=== PATIENT | male | born 1945 | race Caucasian/White ===

== ENCOUNTER 2021-09-22 08:37 | Outpatient (REF) | payer OTHER, MEDICARE, SELFPAY ==
--- NOTE | ~2021-09-22 | MR_ITS ---
EXAMINATION: MR LUMBAR SPINE WITHOUT AND WITH CONTRAST CLINICAL INFORMATION: Low back pain and left-sided sciatica. Reported surgery 9 years ago. COMPARISON: X-ray lumbar spine from 08/17/2008. TECHNIQUE: MRI of the lumbar spine was obtained using routine sequences with and without contrast. Intravenous contrast: Gadavist 10 mL FINDINGS: VERTEBRAL BODIES AND PARASPINAL STRUCTURES: There is a mild leftward curvature of the lumbar spine centered at the L3-L4 level where there is moderate disc space narrowing and a mild retrosubluxation with mild posterior endplate edema. There is moderate disc space narrowing lateralized more so to the right side with endplate spurring at the L4-L5 level. Slight retrosubluxation evident at the L5-S1 level. There is a grade 1 anterolisthesis at the L2-L3 level. There is concavity of the superior endplate of L1 which may be due to a mild chronic compression fracture. No marrow edema otherwise seen. No pathologic enhancement is visible. The paraspinal soft tissues appear normal. Small left renal cyst incidentally visualized. CONUS MEDULLARIS AND CAUDA EQUINA: Normal, terminating at the level of L1. No lower cord signal abnormality is seen. No pathologic intradural enhancement identified. SPINAL LEVELS: L1-L2: Slight posterior subluxation and very mild disc bulge with mild facet arthropathy. No central canal stenosis. Bulging disc results in mild left foraminal encroachment. L2-L3: Anterior subluxation and disc bulge with severe facet arthropathy resulting in severe central canal stenosis and thecal sac compression. Left subarticular to foraminal disc protrusion significantly compresses the exiting left L2 nerve root. Bulging disc with milder right foraminal encroachment. L3-L4: Posterior subluxation and diffuse disc bulge with hypertrophic facet arthropathy. Bulging disc mildly impresses upon the left L4 nerve root in the subarticular zone. Mild central canal stenosis. Moderate bilateral foraminal narrowing. Bulging disc impresses upon the extraforaminal L3 nerve roots bilaterally. L4-L5: Moderate loss of disc height and diffuse disc bulge with hypertrophic facet arthropathy contributes to moderate central canal stenosis and encroachment upon the lateral recesses with mild distortion of the L5 nerve roots. Bulging disc and osseous spurring with mild left foraminal narrowing and severe right foraminal encroachment and compression of the exiting right L4 nerve root. L5-S1: Mild posterior subluxation and disc bulge with hypertrophic facet arthropathy. No central canal stenosis. [id number] bilateral foraminal narrowing. MR/MR lumbar spine wo/w con IMPRESSION: Leftward degenerative curvature of the midlumbar spine. No compression fractures. Severe central canal stenosis with exuberant facet arthropathy and a mild anterior subluxation at the L2-L3 level. Left subarticular to left foraminal disc protrusion compresses the left L2 nerve root as well. Moderate multilevel degenerative disc disease and facet arthropathy. Disc bulge at L3-L4 level impresses upon the left L4 nerve root with mild central canal stenosis and moderate foraminal narrowing. Bulging disc also contacts and impresses upon the extraforaminal L3 nerve roots bilaterally. Moderate degenerative disc disease at the L4-L5 level with moderate central canal stenosis and mass effect upon the L5 nerve roots in the narrowed lateral recesses. Severe right foraminal narrowing and compression of the right L4 nerve root.
== END 2021-09-22 08:38 | disposition home or self-care (01) ==
LOC: HO.MRI 08:37
PROVIDERS: Visit Provider Nurse Practitioner Family
DX: M54.50 Low back pain, unspecified (principal)
CPT/HCPCS: 72158; A9585

== ENCOUNTER 2023-02-27 13:14 | Outpatient (AMB) | payer OTHER, SELFPAY ==
--- NOTE | 2023-02-27 13:52 | MHC.OFFVIS ---
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 He is a pleasant 77-year-old male who said about 30 years ago he developed myocardial infarction. He said he was visiting his daughter and son-in-law in [place] and was helping them with landscaping and suddenly passed out. He had no preceding symptoms of chest pain or shortness of breath. He subsequently was brought to the emergency room was noted to have what appears to be ST-elevation myocardial infarction for which he required clot buster medications as per him and subsequently underwent angioplasty. No stent placement. He does not know the localization of his myocardial infarction and or the coronary artery treated at that point time. Since then he has had no symptoms. He has been on medications ever since. He had an echocardiogram at [place] [facility] which shows low normal LVEF of 50% with old basal inferior scar. Also mildly dilated ascending aorta was noted. This study was from 2021. Patient has had no recurrent symptoms since then. Exercise on a regular basis. Do not have any most recent labs. [facility] Medical History Hyperlipidemia Diabetes HTN (hypertension) Myocardial infarction due to atherothrombotic coronary artery disease CAD (coronary artery disease) Review of Systems Const Denies chills, Denies daytime sleepiness, Denies fatigue, Denies fever(s), Denies frequent falls, Denies poor appetite, Denies snoring, Denies stops breathing during sleep, Denies weakness, Denies weight gain and Denies weight loss Eyes Denies loss of vision ENT Denies dizziness and Denies hearing loss Card Denies chest pain, Denies claudication, Denies leg edema, Denies lightheadedness, Denies palpitations, Denies dyspnea, Denies dyspnea on exertion and Denies orthopnea Resp Denies cough, Denies excessive phlegm production, Denies dyspnea, Denies dyspnea on exertion, Denies snoring and Denies wheezing GI Denies abdominal pain, Denies hematochezia, Denies change in bowel habits, Denies nausea and Denies vomiting Denies dysuria and Denies urinary frequency Musc Denies arthralgias, Denies muscle weakness, Denies numbness and Denies other (frequent falls) Skin/Breast Denies nail changes and Denies rash Neuro Denies Abnormal speech present, Denies dizziness, Denies frequent falls, Denies loss of vision, Denies memory loss, Denies numbness and Denies weakness Psych Denies depression and Denies memory loss Endo Denies fatigue and Denies palpitations Diomedes/Lymph Reports easy bruising and Reports other (anemia) Aller/Immun Denies wheezing Physical Exam Vital Signs: Last Vital Signs Pulse 64 02/27/23 13:56 BP 120/78 02/27/23 13:56 BMI result Body Mass Index 33.0 Const General: cooperative, comfortable, no acute distress, well developed, alert, awake, Physically active and well groomed Nutritional Appearance: well nourished and overweight Orientation/consciousness: patient oriented x3 Limitations: no limitations HEENT Head: Yes normocephalic and Yes atraumatic Neck Neck: Yes trachea midline, Yes supple and Yes no JVD Resp Effort & Inspection: normal respiratory effort Auscultation: clear to auscultation bilaterally Cardio Jugular venous distension: no JVD Palpation: normal PMI Rate: regular rate Rhythm: regular rhythm Heart sounds: S1 normal heart sound present, S2 normal heart sound present, no click, no gallops, no murmurs and no rubs GI Auscultation: normal bowel sounds Skin General skin exam: no rashes or lesions noted Neuro General: patient oriented x3 and no focal motor deficits Speech: No Abnormal speech present Extrem General: Yes no clubbing, cyanosis or edema Psych Appearance: grossly normal Office Procedures EKG Details: EKG shows normal sinus rhythm with frequent interpolated PVCs, unifocal with Q-waves in inferior leads with T-wave changes most likely suggestive basal inferior aneurysm [id number], Complete Assessment & Plan Assessment & Plan (1) CAD (coronary artery disease): Code(s): I25.10 - Atherosclerotic heart disease of [place] coronary artery without angina pectoris Plan: Patient with CAD with no obvious symptoms of time of myocardial infarction except for syncopal episode. No chest pain or shortness of breath. He has had no ischemic workup in the recent past. He has multiple risk factors for progressive CAD. Would obtain exercise myocardial perfusion imaging to evaluate for silent myocardial ischemia. Continue aggressive medical therapy. Lifelong aspirin therapy is advised. He is currently on high-intensity statin therapy and target goal LDL should be closer to 60 mg/dL. Blood pressure is currently well optimized on current therapy. Diabetes under your care with goal hemoglobin A1c less than 7%. Will obtain lab work from your office. Otherwise is encouraged to continue to participate in physical activity as tolerated. (2) Ascending aortic aneurysm: Code(s): I71.21 - Aneurysm of the ascending aorta, without rupture Plan: Patient with mild ascending aortic aneurysm which does not require intervention although requires follow-up annually by echocardiogram. Will repeat echocardiogram near future. Continue aggressive atherosclerotic risk factor modification above. Avoidance of sudden strenuous isometric exercise was discussed. (3) PVCs (premature ventricular contractions): Code(s): I49.3 - Ventricular premature depolarization Plan: Frequent PVCs without any obvious symptoms related to it. Most likely given unifocal nature most likely single focus. Will obtain Holter monitor to assess for frequency of PVCs. This will be scheduled in near future. Continue metoprolol therapy. Ischemic workup as above. Avoidance of stimulants was discussed. Will follow up in the clinic in 1 year's time, sooner p.r.n.. Thank you for allowing me to partake in his care Orders: Orders CA stress test Today I25.10 - Atherosclerotic heart disease of [place] coronary artery without angina pectoris NM cardiolite stress test 2 Weeks I25.10 - Atherosclerotic heart disease of [place] coronary artery without angina pectoris, R07.9 - Chest pain, unspecified Coding Level of Care Code New Pt Level 4 (00206) Diagnoses CAD (coronary artery disease) I25.10 Ascending aortic aneurysm I71.21 PVCs (premature ventricular contractions) I49.3 CPT Codes EKG - CPT: [id number], Complete ([id number])
[2023-02-27 13:56] VITALS: BP 120/78; PULSE 64; BMI 33.0
== END 2023-02-27 14:36 | disposition home or self-care (01) ==
PROVIDERS: PCP Internal Medicine; Visit Provider Internal Medicine Cardiovascular Disease
DX: I25.10 Atherosclerotic heart disease of native coronary artery without angina pectoris (principal); I71.21 Aneurysm of the ascending aorta, without rupture; I49.3 Ventricular premature depolarization
CPT/HCPCS: 93010; 99204

== ENCOUNTER → 2023-02-27 13:14 | Outpatient (BNVA) | payer OTHER, MEDICARE, SELFPAY | PROVIDERS: PCP Internal Medicine; Visit Provider Internal Medicine Cardiovascular Disease | DX: I25.10 Atherosclerotic heart disease of native coronary artery without angina pectoris (principal); I71.21 Aneurysm of the ascending aorta, without rupture; I49.3 Ventricular premature depolarization | CPT/HCPCS: 93005; 99202 ==

== ENCOUNTER → 2023-04-16 08:28 | Outpatient (REF) | payer OTHER, SELFPAY ==
--- NOTE | ~2023-04-16 | NM_ITS ---
Exercise Myocardial perfusion study Indication: Chest pain to evaluate for myocardial ischemia Technique: The patient was brought in for an exercise perfusion study on 04/16/2023. Patient performed exercise as per Pito protocol and was injected 30 mCi of sestamibi was given intravenously one target HR was achieved. Images were obtained using the SPECT gamma camera interlaced with the gating device. Images were obtained in supine position. Resting perfusion study was performed on 04/17/2023. Patient was administered 30 mCi of sestamibi intravenously at rest. Images were then obtained in supine position. Images obtained with and without CT attenuation. Total DLP 105 mGy-cm. Images were processed with the software and compared side to side in short axis, horizontal long axis and vertical long axis views. Findings: The stress perfusion study showed non attenuated images show mildly reduced uptake in the basal and mid inferior as well as inferoapical wall of the LV myocardium as well as mildly reduced uptake in the basal inferolateral lateral wall of the LV myocardium. Attenuation corrected images show mildly reduced uptake in the basal and mid inferior as well as the basal lateral wall of the LV myocardium.. The gated study is suboptimal due to frequent PVCs and not reliable. LV cavity is mildly dilated in size. Resting study shows improved uptake in the inferior wall as well as the basal lateral wall in non attenuated as well as attenuated corrected images. Gating at rest reveals normal systolic wall motion with ejection fraction at 54%. The findings are consistent with mild intensity reversible defect in the basal lateral and inferior wall of the myocardium suggestive of ischemia in RCA/circumflex territory. NM/NM cardiolite stress test Impression: 1. Mild intensity moderate size in the basal lateral and inferior wall of the LV myocardium 2. Gated LVEF is 54% at rest 3. Transient ischemic dilatation not present Stress EKG is negative for ischemia
--- NOTE | 2023-04-16 08:39 | CA_ITS ---
Transthoracic Echocardiogram Patient (Last, First, Middle): John Herzog G Gender: Male Date of : 1945 Age: 78 Procedure Date: 04/16/2023 Procedure Type: Transthoracic Echocardiogram Location: OP Height: 170.18 cm Weight: 93.44 kg BSA: 2.05 m2 Heart Rate: bpm BP: 140 / 80 mmHg Rubber Mixer: [id number] Referring MD: John Phillips MD Symptoms: I71.21 - Aneurysm of the ascending aorta, without rupture Study Quality: Adequate ECG Rhythm: Sinus with PVCs Conclusions: - The left ventricular systolic function is normal. The calculated ejection fraction is 58% by biplane method. - The basal inferior segment is hypokinetic. - There is mild calcification of the aortic valve. - There is mild dilatation of the ascending aorta measuring 4.00 cm. Findings Left Ventricle Normal left ventricular cavity size. The left ventricular systolic function is normal. The calculated ejection fraction is 58% by biplane method. There is evidence of regional wall motion abnormalities. Diastolic function is normal for age. There is mild septal and mild basal asymmetric hypertrophy. Wall Motion Rest Echo Findings The basal inferior segment is hypokinetic. Right Ventricle Mildly increased right ventricular cavity size. There is normal right ventricular systolic function. Atria The left atrium is mildly dilated. The right atrium is normal in size. Aortic Valve There is mild calcification of the aortic valve. There is no aortic valve stenosis. There is no aortic valve regurgitation. Mitral Valve The mitral valve appears normal. There is mild mitral annular calcification. There is trace mitral valve regurgitation. There is no mitral valve stenosis. Pulmonic Valve The pulmonic valve is likely normal. Tricuspid Valve There is trace tricuspid valve regurgitation. There is no evidence of pulmonary hypertension. Great Vessels The aortic arch is normal in size. There is mild dilatation of the ascending aorta measuring 4.00 cm. Small plaque is seen in the sino tubular ridge. Venous The inferior vena cava is normal in size and collapses greater than 50% with inspiration. Pericardium/Pleural There is no evidence of pericardial effusion. Prior Study Comparison Changes noted compared to prior study dated: 07/14/2013. see comment on inferior wall. Measurements 2D Linear Measurements IVSd: 0.87 0.6-0.9/0.6-1.0 cm LVIDd: 5.60 3.9-5.3/4.2-5.9 cm LVIDd Index: 2.73 2.4-3.2/2.2-3.1 cm/m2 LVIDs: 3.41 2.0-3.6 cm LVPWd: 0.99 0.7-1.1 cm LA Diam: 4.50 2.7-3.8/3.0-4.0 cm LAIDs Index: 2.20 1.5-2.3 cm/m2 LV Mass: 248.61 67-162/88-224 g LV Mass Index: 121.27 43-95/49-115 g/m2 LVOT Diam: 2.20 3.0+(-)1.3 cm 2D Systolic Function EF 4C: 56.90 >55% EF 2C: 57.70 >55% EF BiP: 57.60 >55% Mitral Valve MV Pk E: 0.63 MV PK A: 0.69 MV Decel Time: 278.00 E/A: 0.90 E'Lateral: 6.53 E'Medial: 4.46 E/E' Med: 14.10 E/E' Lat: 9.60 PHT: 81.00 MVA PHT: 2.72 Decel Daggett: 2.26 Aortic Valve AoV Pk Micheal: 1.49 AoV Mn Micheal: 0.99 AoV VTI: 0.31 AoV Pk Grad: 9.00 Aov Mn Grad: 5.00 SCOTTIE Cont.VTI: 2.21 LVOT LVOT Pk Micheal: 0.91 LVOT Mn Micheal: 0.57 LVOT VTI: 0.18 LVOT Pk Grad: 3.00 LVOT Mn Grad: 2.00 LVOT Diam: 2.20 LVOT Area: 3.80 Diastolic Function MV Pk E: 0.63 MV Pk A: 0.69 E/A: 0.90 E'Medial: 4.46 E/E' Med: 14.10 E' Laterial: 6.53 E/E' Lat: 9.60 Right Ventricle TAPSE (mm): 25.30 TVS' Micheal: 14.60 Tricuspid Valve TR Pk Micheal: 2.55 TR Pk Grad: 26.00 RA Press: 3.00 RVSP: 29.00 Great Vessels Aorta Sinus of Valsalva: 3.80 2.0-3.[address] Ridge: 2.53 1.7-3.4 cm Ao Asc: 4.00 2.1-3.4 cm Ao Arch: 3.10 Updated in Other Vendor System with Status of Final Danny Phelps MD electronically signed on 04/16/2023 10:30:10 AM with status of Final
--- NOTE | 2023-04-16 08:39 | HM_ITS ---
* Total monitoring time 3 days. * Underlying rhythm is sinus with an average rate of 69/Min. Range 48 to 130/min. * Frequent ventricular ectopy with a burden of 15%. Multiple morphologies. Couplets, triplets, bigeminy and trigeminy. Very brief runs. Longest 9 beats. * Rare supraventricular ectopy. * No significant pauses or AV blocks. * No patient markers or diary events. MTDD
--- NOTE | 2023-04-16 08:39 | CA_ITS ---
Acquisition Time: 2023-04-16 09:54:29 Total Exercise Time: 00:07:59 Test Indications: CAD Medications: ASA ATORVASTATIN LISINOPRIL METFORMIN METOPROLOL OMEPRAZOLE SILDENAFIL Protocol: BALTAZAR Max HR: 136 BPM 95% of Pred: 142 BPM Max BP: 178/080 mmHG Max Work Load: 10.0 METS Exercise stress test exercise 7 min 59 sec of Baltazar protocol achieving 95% MPHR, without anginal symptoms, with isolated PVCs throughout and ventricular cuplets, with normotensive response to exercise, without EKG changes. Nuclear images pending. Test reviewed with Dr. Phelps Referred By: John Phillips Overread By: Jeannette Nagy
== END ==
LOC: HO.CARD 08:28
PROVIDERS: PCP Nurse Practitioner Family; Visit Provider Internal Medicine Cardiovascular Disease
DX: R07.9 Chest pain, unspecified (principal); I71.21 Aneurysm of the ascending aorta, without rupture; I25.10 Atherosclerotic heart disease of native coronary artery without angina pectoris; I49.3 Ventricular premature depolarization
CPT/HCPCS: 78452; 93017; 93242; 93306; A9500

== ENCOUNTER → 2023-04-16 08:39 | Outpatient (BNV) | payer OTHER, SELFPAY | PROVIDERS: PCP Nurse Practitioner Family; Visit Provider Internal Medicine | DX: I49.3 Ventricular premature depolarization (principal) | CPT/HCPCS: 78452; 93016; 93018; 93244; 93306 ==

== ENCOUNTER 2023-08-27 12:59 | Outpatient (REF) | payer OTHER, SELFPAY ==
--- NOTE | ~2023-08-27 | MR_ITS ---
EXAMINATION: MR LUMBAR SPINE WITHOUT CONTRAST CLINICAL INFORMATION: Left-sided sciatica COMPARISON: MRI lumbar spine 09/22/2021 TECHNIQUE: MRI of the lumbar spine was obtained using routine sequences without contrast. FINDINGS: Mild lumbar levocurvature. Straightening of the normal lumbar lordosis. Slight anterolisthesis at L2-L3 and slight retrolisthesis at L3-L4 and L5-S1. Stable height loss associated with a chronic L1 upper endplate compression fracture with mild anterior wedging. Multilevel disc desiccation with similar severe right-sided disc height loss at L3-L4 and L4-L5 and severe left-sided disc height loss at L5-S1 with vacuum phenomenon at these levels and otherwise milder disc height loss. Mild type I/II Modic endplate changes on the right at L4-L5. Couple endplate Schmorl's nodes are seen. Multilevel anterior osteophytic spurring is seen. 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 Level by level detail as follows: L1-L2: Retrolisthesis with redemonstrated left foraminal/extraforaminal disc protrusion. Mild bilateral facet arthrosis. No spinal canal stenosis. Stable mild left without right neural foraminal stenosis. L2-L3: Uncovered posterior disc material. Slightly decreased size of left foraminal disc protrusion. Advanced bilateral facet arthrosis and ligamentum flavum thickening. Similar moderate to severe spinal canal and subarticular zone narrowing with mass effect along the traversing L3 nerve roots. Persistent severe left neural foraminal stenosis with impingement of the exiting/extraforaminal left L2 nerve root. Stable mild right neural foraminal narrowing with slight impingement upon the extraforaminal right L2 nerve root. L3-L4: Annular disc bulge/disc osteophyte with moderate bilateral facet arthrosis and ligamentum flavum thickening. Stable mild spinal canal and subarticular zone narrowing abutting the traversing L4 nerve roots. Unchanged moderate to severe left and moderate right neural foraminal stenosis with impingement of the exiting/extraforaminal left greater than right L3 nerve roots. L4-L5: Annular disc bulge/disc osteophyte complex with severe bilateral facet arthrosis and ligamentum flavum thickening. Stable moderate spinal canal and bilateral subarticular zone narrowing with impingement of the traversing L5 nerve roots. Stable severe right neural foraminal stenosis with compression of the exiting/extraforaminal right L4 nerve root and moderate left neural foraminal narrowing with milder mass effect along the exiting/extraforaminal left L4 nerve root. L5-S1: Annular disc bulge with disc osteophyte complex and moderate facet arthrosis. No spinal canal stenosis. Stable mild to moderate bilateral neural foraminal stenosis. The conus medullaris terminates at the level of T12-L1. The distal spinal cord is normal in appearance. No epidural fluid collection, hematoma, or mass. There is mild fatty atrophy of the paraspinal musculature. Small simple appearing left renal cyst not requiring further imaging follow-up. Bulky bridging osteophytosis again spanning the left left sacroiliac joint. The abdominal aorta is of normal contour and caliber. MR/MR lumbar spine wo con IMPRESSION: Decreased size of left foraminal/extraforaminal disc protrusion at L2-L3. 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 Spinal canal narrowing is most pronounced and moderate to severe at L2-L3. Multilevel high-grade neural foraminal stenosis with mass effect along the exiting nerve roots is likewise stable.
== END 2023-08-27 13:00 | disposition home or self-care (01) ==
LOC: HO.MRI 12:59
PROVIDERS: PCP Nurse Practitioner Family; Visit Provider Physician Assistant Medical
DX: M54.42 Lumbago with sciatica, left side (principal)
CPT/HCPCS: 72148

== ENCOUNTER 2024-02-26 12:26 | Outpatient (REF) | payer OTHER, SELFPAY ==
[2024-02-26 14:07] LABS: Hematocrit 43.5 % (42.0-52.0); Mean Corpuscular HGB Conc 34.5 g/dl (31.0-36.0); Mean Corpuscular Hemoglobin 29.6 pg (27.0-33.0); Platelet Count 208 X10*3/uL (160-400); Red Blood Count 5.06 X10*6/uL (4.60-5.80); Red Cell Distribution Width 12.4 % (11.0-16.0); White Blood Count 7.6 X10*3/uL (4.8-10.8)
[2024-02-26 14:27] LABS: Anion Gap 12 (12-20); Blood Urea Nitrogen 15 mg/dL (9-16); Calcium 8.9 mg/dL (8.4-10.2); Carbon Dioxide 25 mmol/L (22-29); Chloride 104 mmol/L (96-108); Estimated Glomerular Filt Rate > 60; Glucose Random 150 mg/dL (60-115); Potassium 4.1 mmol/L (3.3-5.1); Sodium 137 mmol/L (135-145)
[2024-02-26 14:44] LABS: TSH reflex Free T4 2.52 uIU/mL (0.32-4.0)
== END 2024-02-26 12:27 | disposition home or self-care (01) ==
LOC: HO.LAB 12:26
PROVIDERS: PCP Nurse Practitioner Family; Visit Provider Internal Medicine Cardiovascular Disease
DX: I48.19 Other persistent atrial fibrillation (principal); I25.10 Atherosclerotic heart disease of native coronary artery without angina pectoris; I71.21 Aneurysm of the ascending aorta, without rupture
CPT/HCPCS: 36415; 80048; 84443; 85027; 93005; 99212

== ENCOUNTER 2024-02-26 12:26 | Outpatient (AMB) | payer OTHER, SELFPAY ==
--- NOTE | 2024-02-26 12:40 | MHC.OFFVIS ---
Vital Signs 02/26/24 12:41 Height 5 ft 7.5 in Weight 211 lb 10.3 oz BMI 32.7 BP 140/80 H Blood Pressure Location Lt brachial Position Sitting Pulse 95 Pulse Source Monitor Intake Visit Reasons: 1 year follow up Allergies starch [STARCH] Allergy (Intermediate, Unverified 12/18/19 17:17) RASH Medication List - Last Reconciled 02/26/24 by John Phillips MD aspirin (Martina Low Dose Aspirin) 81 mg PO DAILY atorvastatin 80 mg PO DAILY lisinopril 5 mg PO DAILY metformin 500 mg PO DAILY metoprolol tartrate 25 mg PO BID omeprazole 20 mg PO DAILY PRN sildenafil 100 mg PO DIRECTED HPI Comments Details: John comes for routine 1 year follow-up. He was noted to be in atrial fibrillation by EKG. He said he finds no obvious symptoms. He says blood pressures been elevated and he may have some symptoms of fatigue but he thought there was nothing significant. Denies any worsening exertional shortness of breath. Denies orthopnea, PND, leg edema. No prolonged fast heart rate, palpitations, lightheadedness, syncope. He has been taking all his medications. No recent change in systemic health. FORMERLY [facility] Medical History Hyperlipidemia Diabetes HTN (hypertension) Myocardial infarction due to atherothrombotic coronary artery disease CAD (coronary artery disease) Review of Systems Const Denies weakness ENT Denies dizziness Card Denies chest pain, Denies chest pain with activity, Denies syncope, Denies rapid heart rate, Denies pedal edema, Denies edema, Denies leg edema, Denies lightheadedness, Denies palpitations, Denies dyspnea, Denies dyspnea on exertion and Denies orthopnea Resp Denies cough, Denies dyspnea and Denies dyspnea on exertion GI Denies hematochezia and Denies change in stool character Musc Denies abnormal gait, Denies muscle cramps, Denies muscle weakness, Denies numbness, Denies radiating pain into limb and Denies tingling Neuro Denies Abnormal speech present, Denies abnormal gait, Denies dizziness, Denies syncope, Denies numbness, Denies tingling and Denies weakness Endo Denies palpitations Physical Exam Vital Signs: Last Vital Signs Pulse 95 02/26/24 12:41 BP 140/80 H 02/26/24 12:41 BMI result Body Mass Index 32.7 Const General: cooperative, comfortable, no acute distress, well developed, alert, awake, Physically active and well groomed Nutritional Appearance: well nourished and overweight Orientation/consciousness: patient oriented x3 Limitations: no limitations Neck Neck: Yes trachea midline, Yes supple and Yes no JVD Resp Effort & Inspection: normal respiratory effort Auscultation: clear to auscultation bilaterally Cardio Jugular venous distension: no JVD Palpation: normal PMI Rhythm: abnormal rhythm irregularly irregular Heart sounds: S1 normal heart sound present, S2 normal heart sound present, no click, no gallops, no murmurs and no rubs GI Auscultation: normal bowel sounds Skin General skin exam: no rashes or lesions noted Neuro General: patient oriented x3 and no focal motor deficits Speech: No Abnormal speech present Extrem General: Yes no clubbing, cyanosis or edema Psych Appearance: grossly normal Office Procedures EKG Details: EKG shows atrial fibrillation with nonspecific ST T wave changes in lateral leads with T-wave inversion inferior leads without Q-waves [id number], Complete Assessment & Plan Assessment & Plan (1) Persistent atrial fibrillation: Code(s): I48.19 - Other persistent atrial fibrillation Category: Medical Plan: Persistent new onset atrial fibrillation without any obvious symptoms or signs of cardiac decompensation at current point time. He may have symptoms of fatigue but he is not clear. At this point time we discussed the pathophysiology of atrial fibrillation. Most common risk factors hypertension and aging. We discussed about management of atrial fibrillation. Aspirin is not adequate prophylaxis for stroke prevention. CHADSVASc score of 5. He should be on oral anticoagulation therapy. Discussed various options. I would start him on apixaban 5 mg b.i.d.. Will obtain baseline blood work including TSH. Will obtain an echocardiogram. Once he is adequately anticoagulated for 4 weeks will bring him back for synchronized cardioversion. Discussed risks, benefits, alternatives. He understands and agrees. Rationale for rhythm control was discussed. Will further guide therapy based on his response to cardioversion in symptom improvement. Continue risk factor modification with aggressive control blood pressure. Increasing metoprolol to 50 mg b.i.d. for better rate control and blood pressure control. (2) CAD (coronary artery disease): Code(s): I25.10 - Atherosclerotic heart disease of havasupai coronary artery without angina pectoris Category: Medical Plan: Coronary artery disease with mild ischemia without any obvious symptoms. Has prior history of myocardial infarction. Has inferior wall motion abnormality. Continues to have no symptoms. Could represent silent myocardial ischemia although will manage him with medical therapy given lack of symptoms and low risk myocardial perfusion imaging. Continue aggressive risk factor modification. Increase metoprolol as above. Continue high-intensity statin therapy with target goal LDL closer to 60 mg/dL being pursue through office. (3) Ascending aortic aneurysm: Code(s): I71.21 - Aneurysm of the ascending aorta, without rupture Category: Medical Plan: Mild ascending aortic aneurysm which has remained stable. No interventions required. Continue aggressive blood pressure control and risk factor modification. Follow-up echocardiogram as above. Will follow up in the clinic in 2 months time after cardioversion. Thank you for allowing me to partake in his Orders: Orders Complete Blood Count no Diff Today I48.19 - Other persistent atrial fibrillation Basic Metabolic Panel Today I48.19 - Other persistent atrial fibrillation TSH reflex Free T4 Today I48.19 - Other persistent atrial fibrillation CA echo transthoracic complete Today I48.19 - Other persistent atrial fibrillation Cardioversion 4 Weeks I48.19 - Other persistent atrial fibrillation ECG 3 day holter monitor 6 Weeks I48.19 - Other persistent atrial fibrillation Medications: New apixaban (Eliquis) 5 mg PO BID 60 tabs 5RF metoprolol tartrate 50 mg PO BID 60 tabs 5RF Coding Level of Care Code Est Pt Level 4 (67450) Complex EM visit Add On G2211 Diagnoses Persistent atrial fibrillation I48.19 CAD (coronary artery disease) I25.10 Ascending aortic aneurysm I71.21 CPT Codes EKG - CPT: 11358-[id number], Complete ([id number])
[2024-02-26 12:41] VITALS: BP 140/80; PULSE 95; BMI 32.7
== END 2024-02-26 13:04 | disposition home or self-care (01) ==
PROVIDERS: PCP Internal Medicine; Visit Provider Internal Medicine Cardiovascular Disease
DX: I48.19 Other persistent atrial fibrillation (principal); I25.10 Atherosclerotic heart disease of native coronary artery without angina pectoris; I71.21 Aneurysm of the ascending aorta, without rupture
CPT/HCPCS: 93010; 99214; G2211

== ENCOUNTER → 2024-03-19 07:43 | Outpatient (REF) | payer OTHER, SELFPAY | LOC: HO.CARD 07:43 | PROVIDERS: Visit Provider Internal Medicine Cardiovascular Disease | DX: I48.19 Other persistent atrial fibrillation (principal) | CPT/HCPCS: 93242; Q9957 ==

== ENCOUNTER → 2024-03-19 07:50 | Outpatient (BNV) | payer OTHER, SELFPAY | PROVIDERS: Visit Provider Internal Medicine | DX: I48.19 Other persistent atrial fibrillation (principal); I51.7 Cardiomegaly; I35.1 Nonrheumatic aortic (valve) insufficiency | CPT/HCPCS: 93244; 93306 ==

== ENCOUNTER → 2024-03-21 | Outpatient (REF) | payer OTHER, SELFPAY ==
--- NOTE | 2024-03-19 07:50 | CA_ITS ---
Transthoracic Echocardiogram Patient (Last, First, Middle): John Herzog G Gender: Male Date of : 1945 Age: 78 Procedure Date: 03/19/2024 Procedure Type: Transthoracic Echocardiogram Location: OP Height: 170.18 cm Weight: 95.71 kg BSA: 2.07 m2 Heart Rate: bpm BP: 140 / 80 mmHg Mixing Plant Operator: DANN Referring MD: John Phillips MD Symptoms: I48.19 - Other persistent atrial fibrillation Study Quality: Fair/Contrast ECG Rhythm: Atrial Fibrillation Conclusions: - The left ventricular systolic function is moderately decreased. The visually estimated ejection fraction is between 35-40%. - No obvious valvular pathology seen on this study. - The left atrium is moderately dilated. - There is mild dilatation of the ascending aorta measuring 4.00 cm. Findings Procedure Information Contrast agent, definity, is being given per protocol without apparent complications. Left Ventricle Normal left ventricular cavity size. There is mildly increased left ventricular wall thickness. The left ventricular systolic function is moderately decreased. The visually estimated ejection fraction is between 35 40%. There is moderate global hypokinesis. Diastolic function is indeterminate on the basis of available data. Right Ventricle Mildly increased right ventricular cavity size. There is mildly decreased right ventricular systolic function. Atria The left atrium is moderately dilated. The right atrium is mildly dilated. Aortic Valve There is a normal trileaflet aortic valve. There is mild calcification of the aortic valve. There is no aortic valve stenosis. There is trace (trivial) aortic valve regurgitation. Mitral Valve The mitral valve appears normal. There is trace mitral valve regurgitation. There is no mitral valve stenosis. Pulmonic Valve The pulmonic valve is likely normal. Tricuspid Valve There is trace tricuspid valve regurgitation. There is no evidence of pulmonary hypertension. Great Vessels The aortic arch is normal in size. There is mild dilatation of the ascending aorta measuring 4.00 cm. Venous The inferior vena cava is normal in size and collapses greater than 50% with inspiration. Pericardium/Pleural There is a trivial pericardial effusion. Prior Study Comparison Changes noted compared to prior study dated: 04/16/2023. Decrease in LVEF. Recommendations, Care & Conclusions No obvious valvular pathology seen on this study. Measurements 2D Linear Measurements IVSd: 1.23 0.6-0.9/0.6-1.0 cm LVIDd: 5.15 3.9-5.3/4.2-5.9 cm LVIDd Index: 2.49 2.4-3.2/2.2-3.1 cm/m2 LVIDs: 4.15 2.0-3.6 cm LVPWd: 1.17 0.7-1.1 cm Ao Root: 3.50 2.1-3.5 cm LA Diam: 4.90 2.7-3.8/3.0-4.0 cm LAIDs Index: 2.37 1.5-2.3 cm/m2 LV Mass: 305.53 67-162/88-224 g LV Mass Index: 147.60 43-95/49-115 g/m2 LVOT Diam: 2.10 3.0+(-)1.3 cm 2D Systolic Function EF 4C: 35.30 >55% EF 2C: 37.90 >55% EF BiP: 38.10 >55% Aortic Valve AoV Pk Micheal: 1.30 AoV Mn Micheal: 0.98 AoV VTI: 0.23 AoV Pk Grad: 7.00 Aov Mn Grad: 4.00 SCOTTIE Cont.VTI: 1.88 LVOT LVOT Pk Micheal: 0.71 LVOT Mn Micheal: 0.45 LVOT VTI: 0.13 LVOT Pk Grad: 2.00 LVOT Mn Grad: 1.00 LVOT Diam: 2.10 LVOT Area: 3.46 Right Ventricle TAPSE (mm): 22.40 TVS' Micheal: 8.16 Tricuspid Valve TR Pk Micheal: 2.23 TR Pk Grad: 20.00 RA Press: 3.00 RVSP: 23.00 Great Vessels Aorta Ao Root-2D: 3.50 2.0-3.7 cm Ao Asc: 4.00 2.1-3.4 cm Ao Arch: 2.90 Updated in Other Vendor System with Status of Final Danny Phelps MD electronically signed on 03/21/2024 3:20:07 PM with status of Final
== END ==
LOC: HO.CARD
PROVIDERS: Visit Provider Internal Medicine Cardiovascular Disease
DX: I48.19 Other persistent atrial fibrillation (principal)
CPT/HCPCS: 93242; 93306

== ENCOUNTER 2024-03-28 10:49 | Day surgery (SDC) | payer OTHER, SELFPAY ==
[2024-03-25 13:46] VITALS: BMI 32.6
[2024-03-28 11:35] VITALS: BP 153/83; PULSE 85; RESP 16; TEMP 36.5; O2SAT 97; BMI 30.8
[2024-03-28 11:56] LABS: Glucose, Whole Blood 172 mg/dL (60-115)
--- NOTE | 2024-03-28 12:25 | HO.ANESPROP2 ---
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 coronary artery disease CAD (coronary artery disease) Surgical History Surgical History (Updated 03/28/24 @ 11:44 by Kasia Edmond RN) H/O hemorrhoidectomy H/O endoscopy H/O colonoscopy History of angioplasty H/O Spinal surgery Social History Social History Are you a primary rn homecare to a significant other at home: No Do you presently have visiting nurse or other home services: No Patient Tobacco Use Status: Former Tobacco user Tobacco use type: Cigarette Smoked in Last 30 Days: No Use of substances other than those prescribed or required for medical reasons: No Have you been hit, kicked, punched, or otherwise hurt by someone within the past year? If so, by whom?: No Are you DNR?: No Advance Directives: No Advance Directives Information Provided: Yes ( Catrina per patient) Advance Directives on File: No Recently lost weight without trying: No How much weight loss: Not applicable Eating poorly because of decreased appetite: No Nutrition screen score: 0 Nutrition Risks: No Nutritional Risk Poor oral hygiene: No Meds Allergies Allergy/AdvReac Type Severity Reaction Status Date / Time starch [STARCH] Allergy Intermediate RASH Verified 03/28/24 11:26 Home Medications ?Medication ?Instructions ?Recorded ?Confirmed ?Last Taken ?Type atorvastatin 80 mg tablet 80 mg PO DAILY 02/27/23 03/28/24 Unknown History lisinopril 5 mg tablet 5 mg PO DAILY 02/27/23 03/28/24 03/28/24 History metformin 500 mg tablet 500 mg PO DAILY 02/27/23 03/28/24 03/26/24 History omeprazole 20 mg capsule,delayed 20 mg PO DAILY PRN Acid Reflux 02/27/23 03/28/24 Unknown History release sildenafil 100 mg tablet 100 mg PO DIRECTED 02/27/23 03/28/24 Unknown History Exam Height,Weight and Vital Signs: Height 5 ft 7.5 in Weight 95.708 kg Pertinent Lab Results Pertinent Lab Results: Laboratory Tests 02/26/24 13:38 WBC 7.6 Hgb 15.0 Hct 43.5 Plt Count 208 Sodium 137 Potassium 4.1 Chloride 104 Carbon Dioxide 25 BUN 15 Creatinine 1.08 Narrative Narrative: ECHO 03/2024 Conclusions: - The left ventricular systolic function is moderately decreased. The visually estimated ejection fraction is between 35-40%. - No obvious valvular pathology seen on this study. - The left atrium is moderately dilated. - There is mild dilatation of the ascending aorta measuring 4.00 cm. Assessment and Plan Assessment Anesthesia Assessment: Chart Reviewed Documented by User: Kinjal Copeland DO 03/28/24 12:31 [facility] Past Medical History Medical History Hyperlipidemia Diabetes HTN (hypertension) Myocardial infarction due to atherothrombotic coronary artery disease CAD (coronary artery disease) Family History Family history of problems with anesthesia: No Surgical History Surgical History (Updated 03/28/24 @ 11:44 by Kasia Edmond RN) H/O hemorrhoidectomy H/O endoscopy H/O colonoscopy History of angioplasty H/O Spinal surgery History of Problems with Anesthesia: No Social History Social History Are you a primary rn homecare to a significant other at home: No Do you presently have visiting nurse or other home services: No Patient Tobacco Use Status: Former Tobacco user Tobacco use type: Cigarette Smoked in Last 30 Days: No Use of substances other than those prescribed or required for medical reasons: No Have you been hit, kicked, punched, or otherwise hurt by someone within the past year? If so, by whom?: No Are you DNR?: No Advance Directives: No Advance Directives Information Provided: Yes ( Catrina per patient) Advance Directives on File: No Recently lost weight without trying: No How much weight loss: Not applicable Eating poorly because of decreased appetite: No Nutrition screen score: 0 Nutrition Risks: No Nutritional Risk Poor oral hygiene: No Meds Allergies Allergy/AdvReac Type Severity Reaction Status Date / Time starch [STARCH] Allergy Intermediate RASH Verified 03/28/24 11:26 Home Medications ?Medication ?Instructions ?Recorded ?Confirmed ?Last Taken ?Type atorvastatin 80 mg tablet 80 mg PO DAILY 02/27/23 03/28/24 Unknown History lisinopril 5 mg tablet 5 mg PO DAILY 02/27/23 03/28/24 03/28/24 History metformin 500 mg tablet 500 mg PO DAILY 02/27/23 03/28/24 03/26/24 History omeprazole 20 mg capsule,delayed 20 mg PO DAILY PRN Acid Reflux 02/27/23 03/28/24 Unknown History release sildenafil 100 mg tablet 100 mg PO DIRECTED 02/27/23 03/28/24 Unknown History Exam Exam Date and Time: 03/28/24 1225 Height,Weight and Vital Signs: Height 5 ft 7.5 in Weight 95.708 kg Vital Signs Temperature 97.7 F 03/28/24 11:35 Pulse Rate 85 03/28/24 11:35 Respiratory Rate 16 03/28/24 11:35 Blood Pressure 153/83 H 03/28/24 11:35 Pulse Oximetry 97 03/28/24 11:35 Oxygen Delivery Method Room Air 03/28/24 11:35 Temperature 97.7 F 03/28/24 11:35 Pulse Rate 85 03/28/24 11:35 Respiratory Rate 16 03/28/24 11:35 Blood Pressure 153/83 H 03/28/24 11:35 Pulse Oximetry 97 03/28/24 11:35 Oxygen Delivery Method Room Air 03/28/24 11:35 Airway Mallampati Class: II TM Dist: >3cm Neck ROM: Full Loose/Missing/Broken Teeth: No (patient denied any loose or broken teeth) Heart: S1S2 Lungs: CTAB Assessment and Plan Assessment Anesthesia Assessment: Anesthesia Plan Discussed and Chart Reviewed Final Anesthetic Review Family History of Problems with Anesthesia: No History of Problems with Anesthesia: No NPO: Yes ASA Class: IV Final Preanesthetic Review: No Changes in Pt Med Stat, Meds/Allgs Chart Reviewed, Consent Obtained/Reviewed and Anes Risks/Benef Reviewed Patient Risk: High Procedure Risk: Intermediate Anesthetic Plan Anesthetic Plan: MAC: and Agree w/ Assess. and Plan Disposition: Standard PACU
--- NOTE | 2024-03-28 13:04 | MHC.SHP ---
Pre-Procedural Eval Section A - 24 Hr Update-Section A only Date of Service: 03/28/24 Section B - Complete if H&P > 30 days Chief Complaint: Other persistent atrial fibrillation Details of Present Illness: Patient with persistent atrial fibrillation with symptoms of fatigue Relevant Family History (Specify if Yes): No Relevant Social History: None Present Medications: see Short Stay Collaborative assessment Medical History: Significant History History of Previous Operations: No relevant previous surgery Allergies: Allergies Allergy/AdvReac Type Severity Reaction Status Date / Time starch [STARCH] Allergy Intermediate RASH Verified 03/28/24 11:26 Review of Systems Sugical H&P ROS: Negative: Respiratory, Neurological, Psychiatric, Hem-Onc, Allergic/Immunologic, Gastrointestinal, Genitourinary, Musculoskeletal, Integumentary and Endocrine and Yes, Specify: Constitution (Fatigue) and Cardiovascular (Af) Exam Surgical H&P Exam: Normal: HEENT, Normal: Lungs, Normal: Extremities, Normal: Abdomen, Normal: Skin and Normal: Neurological and Significant Findings: Heart (Irregular ) Plan Diagnosis/Plan: Unchanged I have reviewed the history and physical and performed a pertinent physical examination on my patient. No changes have occurred unless specified. Time Spent With Patient Time: Total time managing care of this patient today ____ minutes.
--- NOTE | 2024-03-28 13:25 | ECG_ITS ---
Test Reason : s/p cardioversion Blood Pressure : / mmHG Vent. Rate : 062 BPM Atrial Rate : 062 BPM P-R Int : 164 ms QRS Dur : 100 ms QT Int : 424 ms P-R-T Axes : 064 035 042 degrees QTc Int : 430 ms Sinus rhythm with Premature supraventricular complexes Septal infarct , age undetermined Abnormal ECG When compared with ECG of 21-MAY-2015 13:01, Premature supraventricular complexes are now Present Septal infarct is now Present Referred By: John Phillips Electronically Signed By:JOHN PHILLIPS MD
--- NOTE | 2024-03-28 13:31 | HO.CARDIVERS ---
Cardioversion Procedure Note Cardioversion Date of Procedure: 03/28/2024 Ordering Provider: Dr. Phillips Performing Provider: Dr. Phillips Indication for Procedure: Persistent atrial fibrillation Pre-Op Diagnosis: Same Post-Op Diagnosis: Normal sinus rhythm Performed with Transesophageal Echo: No History: See office note Consent: Verbal and Written consent was obtained from the patient before starting and after confirming oral anticoagulation use. The patient was made aware of the risk of synchronized cardioversion including benefits and alternatives Procedure: After consent obtained, cardioversion pads were attached in anteroposterior configuration and the patient was sedated by the anesthesia team. Once adequate sedation achieved, patient was delivered 200 joules of biphasic synchronized energy in anteroposterior configuration Complications: None Impression: Successful conversion to sinus rhythm Recommendations: 1. 12 lead EKG 2. Continue full oral anticoagulation 3. Follow up in the office as planned
[2024-03-28 13:34] VITALS: BP 124/78; PULSE 54; RESP 16; TEMP 36.6; O2SAT 96
--- NOTE | 2024-03-28 13:46 | ECG_ITS ---
Test Reason : CP Blood Pressure : / mmHG Vent. Rate : 066 BPM Atrial Rate : 066 BPM P-R Int : 168 ms QRS Dur : 110 ms QT Int : 420 ms P-R-T Axes : 065 032 045 degrees QTc Int : 440 ms Normal sinus rhythm Septal infarct (cited on or before 28-MAR-2024) Abnormal ECG When compared with ECG of 28-MAR-2024 13:46, Premature supraventricular complexes are no longer Present Referred By: John Phillips Electronically Signed By:JOHN PHILLIPS MD
[2024-03-28 13:49] VITALS: BP 111/68; PULSE 53; RESP 16; O2SAT 96
[2024-03-28 14:05] VITALS: BP 114/62; PULSE 54; RESP 16; O2SAT 96
[2024-03-28 14:20] VITALS: BP 127/72; PULSE 53; RESP 16; TEMP 36.3; O2SAT 98
== END 2024-03-28 14:37 | disposition home or self-care (01) ==
PROVIDERS: PCP Internal Medicine Endocrinology, Diabetes & Metabolism; Visit Provider Internal Medicine Cardiovascular Disease
PROC: 5A2204Z Restoration of Cardiac Rhythm, Single (ICD-10-PCS; principal; 2024-03-28 13:00)
DX: I48.19 Other persistent atrial fibrillation (principal); I10 Essential (primary) hypertension; E78.5 Hyperlipidemia, unspecified; E11.9 Type 2 diabetes mellitus without complications; I25.10 Atherosclerotic heart disease of native coronary artery without angina pectoris; I25.2 Old myocardial infarction; Z79.01 Long term (current) use of anticoagulants; Z79.82 Long term (current) use of aspirin; Z79.84 Long term (current) use of oral hypoglycemic drugs; Z79.899 Other long term (current) drug therapy
CPT/HCPCS: 82947; 92960; 93005

== ENCOUNTER → 2024-03-28 10:49 | Outpatient (BNV) | payer OTHER, SELFPAY | PROVIDERS: PCP Internal Medicine Endocrinology, Diabetes & Metabolism; Visit Provider Internal Medicine Cardiovascular Disease | DX: I48.19 Other persistent atrial fibrillation (principal); I49.3 Ventricular premature depolarization; R94.31 Abnormal electrocardiogram [ECG] [EKG] | CPT/HCPCS: 92960; 93010 ==

== ENCOUNTER → 2024-04-22 12:31 | Outpatient (BNVA) | payer OTHER, SELFPAY | PROVIDERS: PCP Nurse Practitioner Family; Visit Provider Internal Medicine Cardiovascular Disease | DX: I48.0 Paroxysmal atrial fibrillation (principal); I42.9 Cardiomyopathy, unspecified; I25.10 Atherosclerotic heart disease of native coronary artery without angina pectoris; I71.21 Aneurysm of the ascending aorta, without rupture | CPT/HCPCS: 93005; 99212 ==

== ENCOUNTER → 2024-06-24 07:51 | Outpatient (REF) | payer OTHER, SELFPAY ==
--- NOTE | 2024-06-24 07:55 | CA_ITS ---
Transthoracic Echocardiogram Patient (Last, First, Middle): John Herzog G Gender: Male Date of : 1945 Age: 79 Procedure Date: 06/24/2024 Procedure Type: Transthoracic Echocardiogram Location: OP Height: 170.18 cm Weight: 92.99 kg BSA: 2.04 m2 Heart Rate: 54 bpm BP: 124 / 70 mmHg Marketing Project Specialist: GRZEGORZ Referring MD: John Phillips MD Offset Machine Operator: John Phillips MD Symptoms: I42.9 - Cardiomyopathy, unspecified Study Quality: Adequate/limited ordered ECG Rhythm: Bradycardia Conclusions: - Mildly reduced LV ejection fraction of 45-50% with moderate asymmetric septal hypertrophy with grade 1 diastolic dysfunction Findings Procedure Information Contrast agent, definity, is being given per protocol without apparent complications. Left Ventricle Normal left ventricular cavity size. There is normal left ventricular wall thickness. The left ventricular systolic function is mildly decreased. Spectral Doppler is indicative of an impaired relaxation filling pattern. E/E prime ratio is <8, consistent with normal filling pressures. Evidence suggests grade I (mild) diastolic dysfunction. There is moderate septal asymmetric hypertrophy. Prior Study Comparison Changes noted compared to prior study dated: 03/19/2024. LV ejection fraction has improved Measurements 2D Linear Measurements IVSd: 1.69 0.6-0.9/0.6-1.0 cm LVIDd: 4.94 3.9-5.3/4.2-5.9 cm LVIDd Index: 2.42 2.4-3.2/2.2-3.1 cm/m2 LVIDs: 4.08 2.0-3.6 cm LVPWd: 0.95 0.7-1.1 cm LV Mass: 327.92 67-162/88-224 g LV Mass Index: 160.75 43-95/49-115 g/m2 LVOT Diam: 2.20 3.0+(-)1.3 cm 2D Systolic Function EF 4C: 46.40 >55% EF 2C: 48.70 >55% EF BiP: 47.00 >55% Mitral Valve MV Pk E: 0.48 MV PK A: 0.54 MV Decel Time: 341.00 E/A: 0.90 E'Lateral: 6.74 E'Medial: 4.24 E/E' Med: 11.30 E/E' Lat: 7.10 PHT: 100.00 MVA PHT: 2.20 Decel [place]: 1.41 LVOT LVOT Pk Micheal: 0.97 LVOT Mn Micheal: 0.57 LVOT VTI: 0.18 LVOT Pk Grad: 4.00 LVOT Mn Grad: 2.00 LVOT Diam: 2.20 LVOT Area: 3.80 Diastolic Function MV Pk E: 0.48 MV Pk A: 0.54 E/A: 0.90 E'Medial: 4.24 E/E' Med: 11.30 E' Laterial: 6.74 E/E' Lat: 7.10 Right Ventricle TAPSE (mm): 21.40 TVS' Micheal: 13.80 Tricuspid Valve RA Press: 3.00 Great Vessels Aorta Ao Asc: 4.00 2.1-3.4 cm Updated in Other Vendor System with Status of Final John Phillips MD electronically signed on 06/25/2024 1:59:10 PM with status of Final
--- OUTSIDE RECORDS SUMMARY | 2024-06-24 08:00 | XMS_ITS | Clinical Summary ---
Author Organization [facility] Address [address] [place] [id number] Care Team Providers Care Industrial Design Engineer Name Role Phone Charles Peralta MD Primary Care Provider [phone] Social History Tobacco Use Types Packs/Day Years Used Date Smoking Tobacco: Never Assessed Sex and Gender Information Value Date Recorded Sex Assigned at Not on file Gender Identity Not on file Sexual Orientation Not on file Plan of Treatment Health Maintenance Due Date Last Done Comments Hepatitis C Virus Screening 1945 DTaP/Tdap/Td Vaccines (1 - Tdap) 1964 Pneumococcal Vaccines 50+ (1 of 1 - PCV) 1995 Zoster (Shingles) Vaccine (1 of 2) 1995 RSV Vaccine 60 years and old er and Patients (1 - 1-dose 75+ series) 2020 COVID-19 Vaccine ( - 2023-2 5 season) 2023 Hepatitis B Vaccines Aged Out No long er eligible based on patient's age to complete this topic Care Teams Industrial Design Engineer Relationship Specialty Start Date End Date Charles Peralta MD [address] [place] [address] PCP - General Internal Medicine 08/15/19
--- OUTSIDE RECORDS SUMMARY | 2024-06-24 08:00 | XMS_ITS | Encounter Summary ---
Author Organization [facility] Address [address] [place] [address] Care Team Providers Care Color Checker Roving Or Yarn Name Role Phone Charles Peralta MD Primary Care Provider Encounter Details Date Type Department Care Team (Late st Contact Info) Description 08/08/2019 Scanned Document GENERIC EXTERNAL DATA DEPARTMENT Provider, MD Chao [address] [place] [address] Social History Tobacco Use Types Packs/Day Years Used Date Smoking Tobacco: Never Assessed Sex and Gender Information Value Date Recorded Sex Assigned at Not on file Gender Identity Not on file Sexual Orientation Not on file documented as of this encounter Plan of Treatment Not on file documented as of this encounter Visit Diagnoses Not on filedocumented in this encounter Care Teams Color Checker Roving Or Yarn Relationship Specialty Start Date End Date Charles Peralta MD [address] [place] [address] PCP - General Internal Medicine 08/15/19 documented as of this encounter
== END ==
LOC: HO.CARD 07:51
PROVIDERS: PCP Nurse Practitioner Family; Visit Provider Internal Medicine Cardiovascular Disease
DX: I42.9 Cardiomyopathy, unspecified (principal)
CPT/HCPCS: 93308; Q9957

== ENCOUNTER → 2024-06-24 07:55 | Outpatient (BNV) | payer OTHER, SELFPAY | PROVIDERS: PCP Nurse Practitioner Family; Visit Provider Internal Medicine Cardiovascular Disease | DX: I42.2 Other hypertrophic cardiomyopathy (principal); I51.89 Other ill-defined heart diseases | CPT/HCPCS: 93308; 93321 ==

== ENCOUNTER 2024-10-28 13:26 | Outpatient (AMB) | payer OTHER, SELFPAY ==
--- NOTE | 2024-10-28 13:48 | MHC.OFFVIS ---
Vital Signs 10/28/24 13:49 Height 5 ft 7.5 in Weight 207 lb 3.752 oz BMI 32.0 BP 120/72 Blood Pressure Location Lt brachial Position Sitting Pulse 68 Intake Visit Reasons: 6m follow up Intake Note: 6 month follow-up feeling good Hydrochloric Acid Operator Required: No Allergies starch (STARCH) Allergy (Intermediate, Verified 03/28/24 11:26) RASH Medication List - Last Reconciled 10/28/24 by John Phillips MD apixaban (Eliquis) 5 mg PO BID atorvastatin 80 mg PO DAILY lisinopril 5 mg PO DAILY metformin 500 mg PO DAILY metoprolol tartrate 50 mg PO BID omeprazole 20 mg PO DAILY PRN sildenafil 100 mg PO DIRECTED HPI Comments Details: John comes for follow-up. He has been doing very well from cardiac perspective. Exercising and swimming regularly. No worsening symptoms. No shortness of breath, orthopnea, PND. No exertional chest pain. No lightheadedness, syncope. No prolonged irregular heartbeat or palpitations. No bleeding issues or neurologic events. Echocardiogram in May showed improvement in LV ejection fraction. 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 coronary artery disease CAD (coronary artery disease) Surgical History H/O hemorrhoidectomy H/O endoscopy H/O colonoscopy History of angioplasty H/O Spinal surgery Social History Are you a primary direct care worker to a significant other at home: No Do you presently have visiting nurse or other home services: No Patient Tobacco Use Status: Former Tobacco user Tobacco use type: Cigarette Review of Systems Const Denies chills, Denies fatigue, Denies fever(s), Denies frequent falls, Denies weakness, Denies weight gain and Denies weight loss ENT Denies dizziness Card Denies chest pain, Denies leg edema, Denies lightheadedness, Denies palpitations, Denies dyspnea, Denies dyspnea on exertion, Denies orthopnea and Denies other (loss of consciousness) Resp Denies cough, Denies dyspnea and Denies dyspnea on exertion GI Denies hematochezia and Denies change in stool character Musc Denies abnormal gait, Denies muscle weakness, Denies numbness, Denies radiating pain into limb and Denies tingling Neuro Denies Abnormal speech present, Denies abnormal gait, Denies dizziness, Denies frequent falls, Denies numbness, Denies tingling and Denies weakness Endo Denies fatigue and Denies palpitations Physical Exam Vital Signs: Last Vital Signs Pulse 68 10/28/24 13:49 BP 120/72 10/28/24 13:49 BMI result Body Mass Index 32.0 Const General: cooperative, comfortable, no acute distress, well developed, alert, awake, Physically active and well groomed Nutritional Appearance: well nourished and overweight Orientation/consciousness: patient oriented x3 Limitations: no limitations Neck Neck: Yes trachea midline, Yes supple and Yes no JVD Resp Effort & Inspection: normal respiratory effort Auscultation: clear to auscultation bilaterally Cardio Jugular venous distension: no JVD Palpation: normal PMI Rate: regular rate Rhythm: regular rhythm Heart sounds: S1 normal heart sound present, S2 normal heart sound present, no click, no gallops, no murmurs and no rubs GI Auscultation: normal bowel sounds Skin General skin exam: no rashes or lesions noted Neuro General: patient oriented x3 and no focal motor deficits Speech: No Abnormal speech present Extrem General: Yes no clubbing, cyanosis or edema Psych Appearance: grossly normal Office Procedures EKG Details: EKG shows normal sinus rhythm with normal EKG [id number], Complete Assessment & Plan Assessment & Plan (1) Cardiomyopathy: Code(s): I42.9 - Cardiomyopathy, unspecified Category: Medical Plan: Cardiomyopathy with improved LV ejection fraction since maintaining rhythm. Doing very well from that perspective. No signs or symptoms of heart failure. Continue current neurohormonal modulation with metoprolol and lisinopril. Signs and symptoms of heart failure were discussed. Continue rhythm control approach which has seemed to improve his LV ejection fraction. Follow-up echocardiogram in 6 months time. (2) Paroxysmal atrial fibrillation: Code(s): I48.0 - Paroxysmal atrial fibrillation Category: Medical Plan: Atrial fibrillation symptoms of loss of AV synchrony mostly. Doing very well from rhythm control approach. LV ejection fraction has improved. Continue rhythm control approach. Continue metoprolol therapy. Avoid antiarrhythmic drug therapy. Advised to monitor EKGs on a regular basis. Avoidance of stimulants was discussed. Continue full oral anticoagulation, currently on Eliquis 5 mg b.i.d.. Semi annual renal function test should be pursued. (3) CAD (coronary artery disease): Code(s): I25.10 - Atherosclerotic heart disease of [place] coronary artery without angina pectoris Category: Medical Plan: CAD with prior [place] with no recurrent symptoms of angina. Continue Eliquis therapy and avoid aspirin therapy to reduce bleeding risk. Continue high-intensity statin therapy with target goal LDL less than 70 mg/dL. Continue aggressive diabetes management. Blood pressure is currently well optimized encouraged to maintain activity level as tolerated. Will follow up in the clinic in 6 months time, sooner p.r.n.. Thank you for allowing me to partake in his care Orders: Orders CA echo transthoracic complete 6 Months I42.9 - Cardiomyopathy, unspecified Coding Level of Care Code Est Pt Level 4 (84125) Complex EM visit Add On G2211 Diagnoses Cardiomyopathy I42.9 Paroxysmal atrial fibrillation I48.0 CAD (coronary artery disease) I25.10 CPT Codes EKG - CPT: 50121-[id number], Complete ([id number])
[2024-10-28 13:49] VITALS: BP 120/72; PULSE 68; BMI 32.0
--- OUTSIDE RECORDS SUMMARY | 2024-10-28 14:17 | XMS_ITS | Clinical Summary ---
Author Organization [facility] Address [address] [place] [id number] Care Team Providers Care Embossing Unit Operator Name Role Phone Charles Peralta MD Primary Care Provider [phone] Social History Tobacco Use Types Packs/Day Years Used Date Smoking Tobacco: Never Assessed Sex and Gender Information Value Date Recorded Sex Assigned at Not on file Legal Sex Male 4:47 PM EDT Gender Identity Not on file Sexual Orientation [...] age to complete this topic Care Teams Embossing Unit Operator Relationship Specialty Start Date End Date Charles Peralta MD [address] [place] [address] PCP - General Internal Medicine 08/15/19
--- OUTSIDE RECORDS SUMMARY | 2024-10-28 14:17 | XMS_ITS | Clinical Summary ---
Author Organization [facility] Address [address] [place] [address] Care Team Providers Care Superintendent Recreation Name Role Phone Yannick Welch MD Primary Care Provider [phone] Medications No known medications Active Problems Problem Noted Date Diagnosed Date Finger pain, right 06/04/2020 Ganglion cyst of finger of right hand 06/04/2020 Trigger middle finger of left hand 05/14/2020 Social History Tobacco Use Types Packs/Day Years Used Date Smoking Tobacco: Never Smokeless Tobacco: Never Sex and Gender Information Value Date Recorded Sex Assigned at Not on file Gender Identity Not on file Sexual Orientation Not on file Plan of Treatment Health Maintenance Due Date Last Done Comments Hepatitis C Screening 1945 COVID-19 Vaccine (#1) 1945 Depression Screening 1957 Preventative Health Evaluation 1963 DTap / Tdap / Td (1 - Tdap) 1964 Shingrix-Zoster Vaccine (1 of 2) 1995 Fall Risk Assessment 2010 Pneumococcal Vaccine (1 of 1 - PCV) 2010 RSV Adult > 60+ Yrs or Pregn ant (1 - 1-dose 75+ series) 2020 Influenza Vaccine (#1) 2024 Hepatitis B Vaccines Aged Out No long er eligible based on patient's age to complete this topic RSV Ped < 20 months Aged Out No longe r eligible based on patient's age to complete this topic Care Teams Superintendent Recreation Relationship Specialty Start Date End Date Yannick Welch MD PCP - General Internal Medicine 09/05/16
== END 2024-10-28 14:15 | disposition home or self-care (01) ==
LOC: HO.HCS 13:26
PROVIDERS: PCP Nurse Practitioner Family; Visit Provider Internal Medicine Cardiovascular Disease
DX: I42.9 Cardiomyopathy, unspecified (principal); I48.0 Paroxysmal atrial fibrillation; I25.10 Atherosclerotic heart disease of native coronary artery without angina pectoris
CPT/HCPCS: 93010; 99214; G2211

== ENCOUNTER → 2024-10-28 13:26 | Outpatient (BNVA) | payer OTHER, SELFPAY | PROVIDERS: PCP Nurse Practitioner Family; Visit Provider Internal Medicine Cardiovascular Disease | DX: I48.0 Paroxysmal atrial fibrillation (principal); I42.9 Cardiomyopathy, unspecified; I25.10 Atherosclerotic heart disease of native coronary artery without angina pectoris | CPT/HCPCS: 93005; 99212 ==